=== PATIENT | male | born 1990 | race Caucasian/White ===

== ENCOUNTER 2018-04-13 22:28 | Emergency (ER) | payer MEDICAID ==
[~2018-04-13] VITALS: Ht 175.3 cm; Wt 77.1 kg
[2018-04-13 22:33] VITALS: BP_SYST 155
[2018-04-14 05:18] VITALS: BP_SYST 141
== END 2018-04-13 23:03 ==
LOC: SED 22:28
DX: F10.129 Alcohol abuse with intoxication, unspecified (principal); J45.909 Unspecified asthma, uncomplicated; I10 Essential (primary) hypertension
CPT/HCPCS: 99283